=== PATIENT | male | born 1955 | race Caucasian/White ===

== ENCOUNTER 2021-08-03 13:43 | Emergency (ER) | payer MEDICARE, SELFPAY ==
--- NOTE | ~2021-08-03 | CT_ITS ---
EXAMINATION: CT HEAD WITHOUT CONTRAST CLINICAL INFORMATION: Headache. Trauma to head. COMPARISON: None TECHNIQUE: Contiguous axial imaging was performed from the skull base to vertex without intravenous administration of contrast. This CT examination was performed using dose optimization techniques as appropriate, variously including the following: *Automated exposure control *Adjustment of mA and/or kV according to patient size (this includes techniques or standardized protocols for targeted exams where dose is matched to indication/reason for exam; i.e. extremities or head) *Use of iterative reconstruction technique DLP: 76 mGy-cm FINDINGS: The brain parenchyma has normal attenuation. The nunez-white matter differentiation is well preserved. No evidence of an acute major vascular territory infarction. No intracranial hemorrhage, extra-axial fluid collection, focal mass effect or midline shift. The ventricles have normal size and configuration; no hydrocephalus. The brainstem and cerebellum have a normal appearance. The cerebellar tonsils are in normal position. The calvarium is intact. A mucus retention cyst is present in the inferior left maxillary sinus. Otherwise, the visualized paranasal sinuses, mastoid air cells and middle ear cavities are well aerated. 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 The temporomandibular joints are normal. CT/CT head/brain wo con IMPRESSION: No mass, hemorrhage or other acute intracranial pathology.
[2021-08-03 13:53] VITALS: PULSE 90; RESP 16; TEMP 36.7; O2SAT 96; BMI 27.2
--- NOTE | 2021-08-03 14:23 | ED.EYEPROB ---
HPI - Eye Problem General Chief complaint: Eye Problems Stated complaint: eye issue Time Seen by Provider: 08/03/21 14:22 Source: patient Mode of arrival: ambulatory Limitations: no limitations History of Present Illness HPI Narrative: 65 years old male came in for evaluation of right eye infection. Symptoms started about 3 days ago on the left eye with redness, left eye discharge and sticking of the eye in the morning, now symptoms moved to the right eye with redness and discharge. No sick contact. Patient also been having headaches on and off started about 2 months ago after a heavy plastic ceiling fell on his head 2 months ago and patient is concerned about the headache. Related Data Previous Rx's Medication Instructions Recorded erythromycin 5 mg/gram (0.5 %) eye 0.5 inch OPHTHALMIC (EYE) QID #3.5 08/03/21 ointment g Allergies Allergy/AdvReac Type Severity Reaction Status Date / Time No Known Allergies Allergy Unverified 06/10/20 16:57 [No Known Allergies*] Review of Systems Review of Systems: All other systems are reviewed and are negative Constitutional: Reports as per HPI and Reports no additional constitutional complaints Eyes: Reports as per HPI and Reports no additional eye complaints Reports system reviewed and no additional complaints, except as documented Cardiovascular: Reports as per HPI and Reports no additional cardiovascular complaints Respiratory: Reports as per HPI and Reports no additional respiratory complaints Gastrointestinal: Reports as per HPI and Reports no additional gastrointestinal complaints Genitourinary: Reports no additional female genitourinary complaints Musculoskeletal: Reports no additional musculoskeletal complaints Skin/Breast: Reports system reviewed and no additional complaints, except as docu Psychiatric: Reports no additional psychiatric complaints Endocrine: Reports no additional endocrine complaints Hematologic/Lymphatic: Reports no additional hematologic/lymphatic complaints Allergic/Immunologic: Reports no additional allergic/immunologic complaints Reports system reviewed and no additional complaints, except as documented and Reports Abnormal speech present [facility] Social History Social History Advance Directives: No Advance Directives Information Provided: Yes Physical Exam Vital Signs: Vital Signs: Last Vital Signs Temp 98.0 F 08/03/21 13:53 Pulse 90 08/03/21 13:53 Resp 16 08/03/21 13:53 Pulse Ox 96 08/03/21 13:53 Body Mass Index 27.2 Vital signs have been reviewed as appeared to be correct. Blood pressure normal. Heart rate normal. Respiration rate normal. Temperature normal. Oxygen saturation normal. Appearance: Alert. Oriented X3. No acute distress. Head: Normal external exam. Normocephalic. Atraumatic. No Perla signs noted. No raccoon eyes noted Eyes: PERRLA. EOMI. Bilateral conjunctivae full injection with greenish discharge in both eyes. Eyelids normal. ENT: TM's Normal. Pharynx normal. Uvula midline. Moist mucous membranes. No trismus noted. No drooling noted. No muffled voice noted. Neck: Normal inspection. Neck supple. FROM. No adenopathy. Thyroid Normal. No meningeal signs. No neck mass noted. CVS: Normal heart rate and rhythm. Heart sound normal. No murmurs noted. Pulses normal throughout. Respiratory: No respiratory distress. Painless inspiration. Breath sounds normal. No wheezes/rales/rhonchi noted. Chest nontender. No accessory muscle usage noted or decreased air movement noted. Abdomen: Soft and nontender. Bowel sounds normal in all 4 quadrants. No distention noted. No organomegaly noted. No visible injury noted. Back: No CVA tenderness. Full range of motion noted. Skin: Skin warm and dry. Normal skin color. Normal skin turgor. No rashes/lesions/lacerations noted. Extremities: No lower extremity edema. Extremities exhibit normal range of motion. Extremities nontender. Neuro: Oriented X 3. Cranial nerve exam: II-XII are grossly intact No motor deficit. No sensory deficit. Reflexes normal. Course Course Course Narrative: Assessment and plan. 65-year-old male came in for 1. Bilateral conjunctivitis will prescribe erythromycin ointment, hot compression. 2. 2-month-old head injury with recurrent headaches, normal neuro exam and head CT. MDM - Eye Problem Imaging Data CT scan - head: Attestation: I personally reviewed and interpreted this imaging study as follows: Radiologist's impression: No acute intracranial pathology. Discharge Plan Discharge Clinical Impression: Bacterial conjunctivitis, Closed head injury Patient Disposition: Home, Self-Care Instructions: Head Injury (ED), Conjunctivitis (ED) Prescriptions: New erythromycin 5 mg/gram (0.5 %) ointment 0.5 inch ophthalmic (eye) QID Qty: 3.5 RF: 2 Referrals: Mook Cheema MD [Primary Care Provider] - 2 days
== END 2021-08-03 16:39 | disposition home or self-care (01) ==
LOC: HO.ED 14:28
PROVIDERS: Emergency Provider Emergency Medicine; PCP Internal Medicine
DX: H10.89 Other conjunctivitis (principal); S09.90XA Unspecified injury of head, initial encounter; W20.8XXA Other cause of strike by thrown, projected or falling object, initial encounter; Y93.9 Activity, unspecified; Y92.9 Unspecified place or not applicable; Y99.9 Unspecified external cause status
CPT/HCPCS: 70450; 99283; 99284

== ENCOUNTER 2021-11-05 16:24 | Emergency (ER) | payer MEDICARE, SELFPAY ==
--- NOTE | ~2021-11-05 | XR_ITS ---
Examination: XR knee RT 2V, XR lumbar spine 2-3V, XR thoracic spine 2V, XR shoulder LT min 2V Indication: pain, fall Comparison: No pertinent prior studies are currently available for comparison. Technique: Frontal and 2 lateral views the thoracic spine, frontal and 2 lateral views of the lumbosacral spine, 4 views of the left shoulder and 2 views of the right knee. Findings: Thoracic spine: Bones are in normal anatomic alignment with no acute fracture or spondylolisthesis. Vertebral body heights and disc heights are preserved. Mild degenerative changes seen with small anterior osteophyte formation. Paravertebral soft tissue adjacent ribs are unremarkable. Lumbar spine: There is a convex right rotatory thoracolumbar curve. Mild sclerotic degenerative changes the posterior elements more so of the lower lumbar spine. Anterior osteophyte formation and disc height loss more so at L2/L3. Paravertebral soft tissues and bowel gas pattern unremarkable. Left shoulder: Humeral head is well-seated within the glenoid fossa. Hypertrophic degenerative changes at the glenohumeral joint and acromioclavicular joint. No acute fracture or dislocation. Visualized left ribs unremarkable. Right knee: Small joint effusion. Tricompartmental degenerative changes are seen with chondrocalcinosis more so in the medial and lateral compartments. No acute fracture or dislocation. XR/XR lumbar spine 2-3V Impression: Chronic appearing and degenerative changes but no acute fracture or dislocation appreciated.
--- NOTE | ~2021-11-05 | XR_ITS ---
Examination: XR knee RT 2V, XR lumbar spine 2-3V, XR thoracic spine 2V, XR shoulder LT min 2V Indication: pain, fall Comparison: No pertinent prior studies are currently available for comparison. Technique: Frontal and 2 lateral views the thoracic spine, frontal and 2 lateral views of the lumbosacral spine, 4 views of the left shoulder and 2 views of the right knee. Findings: Thoracic spine: Bones are in normal anatomic alignment with no acute fracture or spondylolisthesis. Vertebral body heights and disc heights are preserved. Mild degenerative changes seen with small anterior osteophyte formation. Paravertebral soft tissue adjacent ribs are unremarkable. Lumbar spine: There is a convex right rotatory thoracolumbar curve. Mild sclerotic degenerative changes the posterior elements more so of the lower lumbar spine. Anterior osteophyte formation and disc height loss more so at L2/L3. Paravertebral soft tissues and bowel gas pattern unremarkable. Left shoulder: Humeral head is well-seated within the glenoid fossa. Hypertrophic degenerative changes at the glenohumeral joint and acromioclavicular joint. No acute fracture or dislocation. Visualized left ribs unremarkable. Right knee: Small joint effusion. Tricompartmental degenerative changes are seen with chondrocalcinosis more so in the medial and lateral compartments. No acute fracture or dislocation. XR/XR knee RT 2V Impression: Chronic appearing and degenerative changes but no acute fracture or dislocation appreciated.
--- NOTE | ~2021-11-05 | CT_ITS ---
EXAMINATION: CT OF THE HEAD AND CERVICAL SPINE WITHOUT CONTRAST CLINICAL INFORMATION: Fall, pain. COMPARISON: 08/03/2021 TECHNIQUE: Contiguous axial imaging was performed from the vertex to the thoracic inlet, through the head and cervical spine, without intravenous administration of contrast. Coronal and sagittal reformatted images through the cervical spine were obtained on the technologists workstation. Total exam dose-length product: 862+467 mGy-cm This CT examination was performed using dose optimization techniques as appropriate, variously including the following: *Automated exposure control *Adjustment of mA and/or kV according to patient size (this includes techniques or standardized protocols for targeted exams where dose is matched to indication/reason for exam; i.e. extremities or head) *Use of iterative reconstruction technique FINDINGS: Head: No acute intracranial hemorrhage. No extra-axial fluid collection. Banuelos-white matter differentiation is preserved without evidence of acute large vessel territory ischemia. Symmetric, concordant ventricles and sulci; no hydrocephalus. No mass effect or midline shift. Patchy periventricular and subcortical white matter hypodensity consistent with chronic microvascular white matter ischemic changes again seen. The appearance is similar to the prior study. Left frontal scalp soft tissue swelling. Right phthisis bulbi again noted. Normal left globe and orbit. No acute sinusitis. Cervical spine: Normal pre-vertebral soft tissues. No fracture seen. Normal alignment. Degenerative disc disease with anterior as well as posterior disc osteophyte complexes most notable at C5-C6 but present C4-C7. Thyroid homogeneous with no nodules seen. Lung apices are clear. No cervical lymphadenopathy, mass, or fluid collection. CT/CT cervical spine wo con IMPRESSION: No acute intracranial pathology. No acute osseous abnormality of the cervical spine.
--- NOTE | ~2021-11-05 | XR_ITS ---
Examination: XR knee RT 2V, XR lumbar spine 2-3V, XR thoracic spine 2V, XR shoulder LT min 2V Indication: pain, fall Comparison: No pertinent prior studies are currently available for comparison. Technique: Frontal and 2 lateral views the thoracic spine, frontal and 2 lateral views of the lumbosacral spine, 4 views of the left shoulder and 2 views of the right knee. Findings: Thoracic spine: Bones are in normal anatomic alignment with no acute fracture or spondylolisthesis. Vertebral body heights and disc heights are preserved. Mild degenerative changes seen with small anterior osteophyte formation. Paravertebral soft tissue adjacent ribs are unremarkable. Lumbar spine: There is a convex right rotatory thoracolumbar curve. Mild sclerotic degenerative changes the posterior elements more so of the lower lumbar spine. Anterior osteophyte formation and disc height loss more so at L2/L3. Paravertebral soft tissues and bowel gas pattern unremarkable. Left shoulder: Humeral head is well-seated within the glenoid fossa. Hypertrophic degenerative changes at the glenohumeral joint and acromioclavicular joint. No acute fracture or dislocation. Visualized left ribs unremarkable. Right knee: Small joint effusion. Tricompartmental degenerative changes are seen with chondrocalcinosis more so in the medial and lateral compartments. No acute fracture or dislocation. XR/XR shoulder LT min 2V Impression: Chronic appearing and degenerative changes but no acute fracture or dislocation appreciated.
--- NOTE | ~2021-11-05 | XR_ITS ---
Examination: XR knee RT 2V, XR lumbar spine 2-3V, XR thoracic spine 2V, XR shoulder LT min 2V Indication: pain, fall Comparison: No pertinent prior studies are currently available for comparison. Technique: Frontal and 2 lateral views the thoracic spine, frontal and 2 lateral views of the lumbosacral spine, 4 views of the left shoulder and 2 views of the right knee. Findings: Thoracic spine: Bones are in normal anatomic alignment with no acute fracture or spondylolisthesis. Vertebral body heights and disc heights are preserved. Mild degenerative changes seen with small anterior osteophyte formation. Paravertebral soft tissue adjacent ribs are unremarkable. Lumbar spine: There is a convex right rotatory thoracolumbar curve. Mild sclerotic degenerative changes the posterior elements more so of the lower lumbar spine. Anterior osteophyte formation and disc height loss more so at L2/L3. Paravertebral soft tissues and bowel gas pattern unremarkable. Left shoulder: Humeral head is well-seated within the glenoid fossa. Hypertrophic degenerative changes at the glenohumeral joint and acromioclavicular joint. No acute fracture or dislocation. Visualized left ribs unremarkable. Right knee: Small joint effusion. Tricompartmental degenerative changes are seen with chondrocalcinosis more so in the medial and lateral compartments. No acute fracture or dislocation. XR/XR thoracic spine 2V Impression: Chronic appearing and degenerative changes but no acute fracture or dislocation appreciated.
[2021-11-05 16:51] VITALS: BP 140/70; PULSE 81; RESP 16; TEMP 36.1; O2SAT 97; BMI 25.7
--- NOTE | 2021-11-05 17:37 | ED_ITS ---
HPI - Back Pain/Injury General Chief Complaint: Back Pain/Injury Stated Complaint: fall/back and shoulder pain Time Seen by Provider: 11/05/21 17:32 Source: patient Mode of arrival: ambulatory Limitations: no limitations History of Present Illness HPI Narrative: 66 yo male here with reports of back/left shoulder/neck/head pain after fall last evening. Patient tells me he was walking his dog when he was pulled falling backwards onto turf. +hit head. No LOC. No radiation of pain into legs or arms. No numbness/tingling in the extremities. No bowel or bladder incontinence. No fevers, chills. No dizziness, nausea, vomiting, vision changes, light sensitivity NO AC therapy. Related Data Previous Rx's Medication Instructions Recorded erythromycin 5 mg/gram (0.5 %) eye 0.5 inch OPHTHALMIC (EYE) QID #3.5 08/03/21 ointment g cyclobenzaprine 10 mg tablet 10 mg PO TID PRN #10 tab 11/05/21 lidocaine 5 % topical patch 1 patch TOPICAL DAILY #15 ea 11/05/21 (Lidoderm) naproxen 500 mg tablet 500 mg PO BID PRN #20 tab 11/05/21 Allergies Allergy/AdvReac Type Severity Reaction Status Date / Time No Known Allergies Allergy Unverified 06/10/20 16:57 [No Known Allergies*] Review of Systems Review of Systems: Yes all other systems are reviewed and are negative Constitutional: Constitutional: Reports no additional constitutional complaints, Denies body ache(s), Denies chills, Denies fever(s), Reports headache(s) and Denies weakness Eyes: Eyes: Reports no additional eye complaints and Denies change in vision ENT: Reports system reviewed and no additional complaints, except as documented, Denies dizziness, Reports headache(s), Denies nasal congestion, Denies nasal discharge and Reports neck pain Cardiovascular: Cardiovascular: Reports no additional cardiovascular complaints, Denies chest pain, Denies leg edema and Denies dyspnea Respiratory: Respiratory: Reports no additional respiratory complaints, Denies cough and Denies dyspnea Gastrointestinal: Gastrointestinal: Reports no additional gastrointestinal complaints, Denies abdominal pain, Denies diarrhea, Denies nausea and Denies vomiting Genitourinary: Genitourinary: Denies urinary incontinence Musculoskeletal: Musculoskeletal: Reports no additional musculoskeletal complaints, Reports back pain, Reports arthralgias, Denies joint swelling, Reports neck pain, Denies numbness and Denies tingling Integumentary/Breasts: Skin/Breast: Reports system reviewed and no additional complaints, except as docu and Denies rash Neurologic: Denies Abnormal speech present, Denies dizziness, Reports headache(s), Denies numbness, Denies tingling and Denies weakness PMFSH Past Medical History Attestation statement: The following information was validated with the patient. Source: old records reviewed and nursing notes reviewed Social History Social History Advance Directives: No Advance Directives Information Provided: Yes Physical Exam Vital Signs: Vital Signs: Last Vital Signs Temp 97.0 F 11/05/21 16:51 Pulse 81 11/05/21 16:51 Resp 16 11/05/21 16:51 BP 140/70 H 11/05/21 16:51 Pulse Ox 97 11/05/21 16:51 BMI result Body Mass Index 25.7 Const: General: cooperative, healthy appearing, comfortable and no acute distress Orientation/consciousness: patient oriented x3 Limitations: no limitations HENMT: Head: Yes normal to inspection Ears: hearing grossly normal bilaterally and TM's normal bilaterally General nose exam: Normal external nose present Face and sinus: Yes normal facial exam Mouth: Normal oral and palatal mucosa present Throat: Yes posterior oropharynx normal, Yes tonsils normal and Yes uvula midline Eyes: Other: Right eye visual loss at baseline due to previous injury General: appearance normal, both eyes and all related structures Pupils: Equal, round and reactive pupils present Neck: Other: No midline tenderness. Patient has tenderness over the left trapezius with a palpable muscle spasm. Full range of motion Neck: Yes normal visual inspection, Yes full ROM, Yes no lymphadenopathy and Yes no meningeal signs Chest: Chest palpation & inspection: normal inspection of the chest Resp: Effort & Inspection: normal respiratory effort Auscultation: clear to auscultation bilaterally Cardio: Rate: regular rate Rhythm: regular rhythm Peripheral pulses: Pe ripheral pulses 2+ throughout GI: Inspection: Yes normal to inspection Palpation (GI): Soft to palpation and nontender Auscultation: normal bowel sounds Back/Spine/Pelvis: Other: Tenderness over the thoracic and the lumbar mid spines with no step-offs or deformities. Pain is worsened with flexion and extension of the spine. Thoracic/Lumbar Spine: thoracic and lumbar spine normal to inspection Skin: General skin exam: no rashes or lesions noted Neuro: Other: Right eye visual loss at baseline due to previous injury General: patient oriented x3, no meningeal signs, no focal motor deficits and normal sensation to monofilament Cranial nerves: Yes CN's II-XII intact bilaterally, Yes Equal, round and reactive pupils present, Yes Bilaterally intact EOM present, Yes Nystagmus not present, Yes Normal facial strength present and Yes Midline tongue present Cognition (Neuro): normal cognition Speech: No Abnormal speech present Gait exam (Neuro): Normal gait present Motor exam (neuro): 5/5 motor strength present throughout Sensory Exam: Normal double simultaneous s timulation for sensation Deep tendon reflexes (DTR's): Right patellar reflex intensity grade: 2+ and Left patellar reflex intensity grade: 2+ Extrem: Other: Tenderness over the proximal humerus of the left shoulder with no deformity, swelling, ecchymosis. Pain is worsened with abduction. Neurovascular intact distally General: Yes normal to inspection Course Course Course Narrative: Mechanical fall last evening and here with pain comes and pain comes today and left shoulder pain Will check x-rays, CT, provide analgesia. -while in x-ray started c/o right knee pain. x-rays ordered. 1899-Sign out to Cherie [place] pending imaging. MDM - Back Pain/Injury MDM Narrative Medical decision making narrative: fx vs contusion vs sprain [facility] Medical Records Attestation: I reviewed the patient's medical records. Lab Data Attestation: I reviewed the patient's lab results. Imaging Data Ct head/neck: Attestation: I personally reviewed and interpreted this imaging study as follows: Radiologist's impression: FINDINGS: Head: No acute intracranial hemorrhage.? No extra-axial fluid collection. Banuelos-white matter differentiation is preserved without evidence of acute large vessel territory ischemia. Symmetric, concordant ventricles and sulci; no hydrocephalus.? No mass effect or midline shift. Patchy periventricular and subcortical white matter hypodensity consistent with chronic microvascular white matter ischemic changes again seen. The appearance is similar to the prior study. Left frontal scalp soft tissue swelling. Right phthisis bulbi again noted. Normal left globe and orbit. No acute sinusitis. ? Cervical spine: Normal pre-vertebral soft tissues. No fracture seen. Normal alignment. Degenerative disc disease with anterior as well as posterior disc osteophyte complexes most notable at C5-C6 but present C4-C7. Thyroid homogeneous with no nodules seen.? Lung apices are clear. No cervical lymphadenopathy, mass, or fluid collection. CT/CT cervical spine wo con IMPRESSION: No acute intracranial pathology. ? No acute osseous abnormality of the cervical spine. ? Discharge Plan Discharge Clinical Impression: Strain of lumbar region, Cervical strain, Head injury, Contusion of left shoulder, Thoracic back pain Patient Disposition: Still a Patient Instructions: Cervical Strain (ED), Head Injury (ED), Acute Low Back Pain (ED), Contusion in Adults (ED) Additional Instructions: Heat or ice Gentle stretching No heavy lifting or bending Limit screen time and get rest Prescriptions: New lidocaine [Lidoderm] 5 % adhesive patch,medicated 1 patch topical DAILY Qty: 15 0RF Rx Instructions: leave on most painful area for up to 12 hrs cyclobenzaprine 10 mg tablet 10 mg PO TID PRN (Reason: muscle spasm) Qty: 10 0RF naproxen 500 mg tablet 500 mg PO BID PRN (Reason: pain) Qty: 20 0RF No Action erythromycin 5 mg/gram (0.5 %) ointment 0.5 inch ophthalmic (eye) QID Qty: 3.5 2RF Referrals: Physician,Unknown J [Primary Care Provider] - 1 week
[2021-11-05] MEDS: Ketorolac Tromethamine 60 MG/2 ML VIAL IM (18:50)
[2021-11-05] MEDS: Acetaminophen 325 MG TABLET 650 MG PO (19:12)
== END 2021-11-05 19:30 | disposition home or self-care (01) ==
PROVIDERS: Emergency Provider Emergency Medicine
DX: S09.90XA Unspecified injury of head, initial encounter (principal); S39.012A Strain of muscle, fascia and tendon of lower back, initial encounter; S16.1XXA Strain of muscle, fascia and tendon at neck level, initial encounter; S40.012A Contusion of left shoulder, initial encounter; W01.0XXA Fall on same level from slipping, tripping and stumbling without subsequent striking against object, initial encounter; M54.6 Pain in thoracic spine; Y93.K1 Activity, walking an animal; Y92.480 Sidewalk as the place of occurrence of the external cause; Y99.9 Unspecified external cause status
CPT/HCPCS: 70450; 72070; 72100; 72125; 73030; 73560; 96372; 99284; J1885